=== PATIENT | male | born 1955 | race Asian ===

== ENCOUNTER 2025-02-08 09:08 | Inpatient (IN) | payer OTHER, MEDICARE ==
[2025-02-03 16:11] VITALS: BMI 25.7
[2025-02-08] MEDS ORDERED: PROPOFOL 40 ML ONE (09:18)
[2025-02-08] MEDS ORDERED: ROPIVACAINE HCL 0.5% 30ML VIAL ONE (09:50)
[2025-02-08] MEDS ORDERED: BUPIVACAINE HCL/PF 0.5% (5MG/ML) 10 ML VIAL ONE (09:50)
[2025-02-08] MEDS ORDERED: MIDAZOLAM HCL 2 MG/2 ML SINGLE DOSE VIAL ONE (09:55)
[2025-02-08] MEDS ORDERED: TRANEXAMIC ACID 1000 MG/10 ML VIAL ONE ×2 (11:23→12:07)
[2025-02-08] MEDS ORDERED: ONDANSETRON 4 MG/2 ML VIAL ONE (12:36)
[2025-02-08] MEDS ORDERED: KETOROLAC TROMETHAMINE 30 MG/1 ML VIAL ONE (13:25)
[2025-02-08] MEDS ORDERED: ACETAMINOPHEN INJECTION 100 ML ONE (13:26)
[2025-02-08] MEDS ORDERED: MAG HYDROX/AL HYDROX/SIMETH 30 ML UNIT-DOSE CUP PO PRN (13:31)
[2025-02-08] MEDS ORDERED: MAGNESIUM HYDROX 2400MG/30ML ORAL SUSPENSION 30 ML CUP PO PRN (13:31)
[2025-02-08] MEDS ORDERED: ONDANSETRON 4 MG/2 ML VIAL IVPUSH PRN (13:39)
[2025-02-08] MEDS: ONDANSETRON 4 MG/2 ML VIAL IVPUSH PRN (13:55)
[2025-02-08] MEDS: PROMETHAZINE HCL 25 MG/1 ML VIAL IVPB PRN (14:10)
[2025-02-08] MEDS ORDERED: FAMOTIDINE 20 MG/50 ML IVPB 20 MG/50 ML MG IVPB ONE (14:29)
[2025-02-08] MEDS ORDERED: PROPOFOL 20 ML ONE (14:32)
[2025-02-08] MEDS: FAMOTIDINE 20 MG/50 ML IVPB 20 MG/50 ML MG IVPB ONE (14:47)
[2025-02-08] MEDS ORDERED: SIMETHICONE 80 MG TAB.CHEW (FP) PO PRN (15:18)
[2025-02-08] MEDS: ACETAMINOPHEN 1000 MG/100 ML BAG IVPB SCH (18:18)
[2025-02-08] MEDS: CEFAZOLIN SODIUM 2 GM in DEXTROSE 5%-WATER 100 ML IVPB SCH (18:20)
[2025-02-08] MEDS: LACTATED RINGERS SOLUTION 1,000 ML IV SCH (18:30)
[2025-02-08] MEDS: metFORMIN HCL 500 MG TABLET (FP) PO SCH (18:31)
[2025-02-08] MEDS: ASPIRIN 81 MG CHEWABLE TABLETS PO SCH (21:44)
[2025-02-08] MEDS: SENNOSIDES/DOCUSATE COMBO (SENNA PLUS) TABLET (UD) PO SCH (21:44)
[2025-02-08] MEDS: DEXAMETHASONE 4 MG TABLET (FP) PO SCH (21:44)
[2025-02-08] MEDS: VALSARTAN 160 MG TABLET PO SCH (21:44)
[2025-02-08] MEDS: TRANEXAMIC ACID 1000 MG/10 ML VIAL IVPB SCH (21:45)
[2025-02-08] MEDS ORDERED: ROSUVASTATIN CA 40 MG TABLET PO SCH (22:00)
[2025-02-09] MEDS: ROSUVASTATIN CA 40 MG TABLET PO ONE (06:00)
[2025-02-09] MEDS: FAMOTIDINE 20 MG TABLET PO ONE (06:00)
[2025-02-09] MEDS ORDERED: REFRIGERATED ANITBIOTICS ONE (11:06)
[2025-02-09] MEDS: MULTIVITAMINS (DAILY MVI) TABLET (FP) PO SCH (11:49)
[2025-02-09 13:13] VITALS: RESP 18
[2025-02-09 16:25] VITALS: BP 113/56; PULSE 72; TEMP 97.7
[2025-02-09] MEDS ORDERED: FAMOTIDINE 20 MG TABLET PO SCH (22:00)
== END 2025-02-09 17:04 | disposition home or self-care (01) | DRG 470 ==
LOC: FM/S 09:08 → EDSTATUS 10:15 → FM/S 15:49
PROVIDERS: ADMIT Orthopaedic Surgery; ATTEND Orthopaedic Surgery
PROC: 0SRD0J9 Replacement of Left Knee Joint with Synthetic Substitute, Cemented, Open Approach (ICD-10-PCS; principal; 2025-02-08 11:37)
DX: M17.12 Unilateral primary osteoarthritis, left knee (principal)
CPT/HCPCS: 73560-TC-LT-FY; 82962; 94760; 97010-GP; 97116-GP; 97161-GP; C1776